=== PATIENT | female | born 1970 | race Two or more races ===

== ENCOUNTER 2017-02-14 18:14 | Observation (INO) | payer OTHER ==
[~2017-02-14] VITALS: Ht 154.9 cm; Wt 82.4 kg
[2017-02-14 19:40] LABS: HEMATOCRIT 43.6 % (36.0-46.0); MCH 31.3 PG (29.0-34.0); MCHC 35.8 G/DL (30.0-36.0); MCV 87.4 FL (83-99); MEAN PLAT.VOLUME 8.7 uM^3 (9.5-12.4); PLATELET COUNT 347 K/uL (156-360); RBC DIS.WIDTH-CV 11.7 % (11.8-14.6); RBC DIS.WIDTH-SD 37.2 % (39-53); RED BLOOD COUNT 4.99 M/uL (3.80-5.20); WHITE BLOOD COUNT 10.5 K/uL (4.1-10.2)
[2017-02-14 19:45] LABS: PROTHROMBIN TIME 11.3 SEC (10.2-12.9)
[2017-02-14 19:48] LABS: CHLORIDE 107 mEq/L (99-109); POTASSIUM 3.4 mEq/L (3.7-5.4); PTT 26.7 SEC (25-37); SODIUM 137 mEq/L (136-147)
[2017-02-14 19:49] LABS: GLUCOSE 204 mg/dL (70-99)
[2017-02-14 19:51] LABS: ANION GAP 10 MEQ/L (2-14)
[2017-02-14 19:54] LABS: UREA NITROGEN (BUN) 10 mg/dL (9-23)
[2017-02-14 19:55] LABS: GFR ESTIMATE (CALCULATED) > 59 mL/min/
[2017-02-14 20:04] LABS: TROP-I INTERPRETATION NEGATIVE; TROPONIN-I 0.18 ng/mL (0.0-0.30)
[2017-02-14 20:06] LABS: D-DIMER ELISA < 150.00 ng/mLDDU (<230)
[2017-02-14] MEDS ORDERED: LISINOPRIL5 MG PO (22:17)
[2017-02-15 00:09] VITALS: BP 163/119
[2017-02-15 01:53] LABS: TROP-I INTERPRETATION INDETERMINATE; TROPONIN-I 0.38 ng/mL (0.0-0.30)
[2017-02-15 03:54] VITALS: BP 131/80
[2017-02-15 07:53] VITALS: BP 133/84
[2017-02-15 08:34] LABS: POINT-OF-CARE METER ID UU14162513
[2017-02-15 09:22] LABS: HDL CHOLESTEROL 46 MG/DL (Desirable>=50); LDL CHOLESTEROL 130 mg/dL (Desirable<100); NON-HDL CHOLESTEROL 166 mg/dL (Desirable<160); TOTAL CHOLESTEROL 212 mg/dL (Desirable<200); TRIGLYCERIDES 181 MG/DL (Normal: <150)
[2017-02-15 09:36] LABS: TROP-I INTERPRETATION NEGATIVE; TROPONIN-I 0.19 ng/mL (0.0-0.30)
[2017-02-15 11:50] VITALS: BP 110/63
[2017-02-15 12:18] LABS: POINT-OF-CARE METER ID UU14162513
[2017-02-15] MEDS ORDERED: AZITHROMYCIN500 M1 PO (12:47)
[2017-02-15] MEDS ORDERED: ASPIR-LOW81 MG PO (12:48)
[2017-02-15] MEDS ORDERED: ATORVASTATIN CA40 MG PO (12:48)
[2017-02-15] MEDS ORDERED: LOPRESSOR25 MG PO (12:48)
[2017-02-15 21:13] LABS: Estimated Average Glucose 143 mg/dL (70-123); HEMOGLOBIN A1c (GLYCOHEMOGLOB) 6.6 % HGB (Below 5.7)
== END 2017-02-15 15:05 | disposition home or self-care (01) ==
LOC: EME 18:14 → EDOF 22:09 → ENRESERV 22:11 → 5WEST 23:52
PROVIDERS: Emergency Medicine; Hospitalist; Physician Assistant Medical
DX: R07.9 Chest pain, unspecified (principal); I49.3 Ventricular premature depolarization; J40 Bronchitis, not specified as acute or chronic; I10 Essential (primary) hypertension; E78.5 Hyperlipidemia, unspecified; E66.9 Obesity, unspecified; Z68.34 Body mass index [BMI] 34.0-34.9, adult; M79.602 Pain in left arm; M54.2 Cervicalgia
CPT/HCPCS: 71020; 71260; 80048; 80061; 82948; 83036; 84484; 85027; 85379; 85610; 85730; 93005; 99202; 99281; 99285; G0378; J1650; J7030